=== PATIENT | male | born 1995 | race Hispanic/Latino ===

== ENCOUNTER 2018-01-13 02:24 | Emergency (ER) | payer SELFPAY ==
[2018-01-13] MEDS ORDERED: NA CHLORIDE 0.9% 1,000 ML ONE (02:39)
[2018-01-13] MEDS ORDERED: TETANUS & DIPHTHERIA TOX,ADULT 0.5 ML VIAL ONE (02:40)
[2018-01-13] MEDS ORDERED: CEFAZOLIN/SWI 1gm 1 GM/10 ML SYR ONE (02:40)
[2018-01-13 03:04] LABS: Absolute Lymphocytes (CBC) 2.9 K/uL (0.7-4.9); Absolute Monocytes 0.9 K/uL (0.1-1.3); Eosinophils % 0.5 % (0-4.4); Hematocrit 41.6 % (39.6-49.0); Lymphocytes % 26.1 % (15.3-44.8); MCH 30.8 pg (27.0-35.0); MCV 90.7 fL (80-100); MPV 7.9 fL (7.6-11.3); Monocytes % 8.1 % (3.3-12.3); RBC Red Blood Cell Count 4.59 M/uL (4.33-5.43)
[2018-01-13 03:50] LABS: ALT/SGPT 40 U/L (12-78); AST/SGOT 29 U/L (15-37); Alcohol Serum/Plasma 225 mg/dL (<3); Alkaline Phosphatase 80 U/L (45-117); BUN Blood Urea Nitrogen 11 mg/dL (7-18); Bicarbonate 23 mmol/L (21-32); Bilirubin Direct < 0.1 mg/dL (0-0.2); Bilirubin Total 0.2 mg/dL (0.2-1.0); Glucose Level 154 mg/dL (74-106); Potassium 3.3 mmol/L (3.5-5.1); Protein, Total 8.1 g/dL (6.4-8.2); Sodium Level 137 mmol/L (136-145)
[2018-01-13 04:16] LABS: Barbiturates NEGATIVE (NEGATIVE); Benzodiazepines NEGATIVE (NEGATIVE); Cocaine POSITIVE (NEGATIVE); METHAMPHETAM NEGATIVE (NEGATIVE); Methadone NEGATIVE (NEGATIVE); Opiates NEGATIVE (NEGATIVE); Phencyclidine NEGATIVE (NEGATIVE); THC Cannibis NEGATIVE (NEGATIVE)
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
[2018-01-13] MEDS ORDERED: POTASSIUM CL SA 10 MEQ TAB PO ONE (04:42)
[2018-01-13 04:59] VITALS: TEMP 98.9
[2018-01-13 05:02] VITALS: BP 110/73; O2SAT 97
[2018-01-13 05:54] LABS: Urine Blood TRACE (NEG); Urine Glucose NEGATIVE (NEG); Urine Protein NEGATIVE (NEG); Urine Specific Gravity <1.005 (1.005-1.030); Urine pH 5.5 (5.0-7.0)
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
== END 2018-01-13 04:53 | disposition home or self-care (01) ==
LOC: ER 02:24
DX: S71.102A Unspecified open wound, left thigh, initial encounter (principal); W34.00XA Accidental discharge from unspecified firearms or gun, initial encounter; Y93.9 Activity, unspecified; Y92.9 Unspecified place or not applicable; F19.10 Other psychoactive substance abuse, uncomplicated; Z23 Encounter for immunization
CPT/HCPCS: 36415; 73701; 80048; 80076; 80307; 80320; 81003; 85025; 90714; 96361; 96374; 99284; J0690; J7030; Q9967

== ENCOUNTER 2019-05-11 06:38 | Emergency (ER) | payer SELFPAY ==
[2019-05-11] MEDS ORDERED: TETANUS & DIPHTHERIA TOX,ADULT 0.5 ML VIAL ONE (06:55)
[2019-05-11] MEDS ORDERED: NA CHLORIDE 0.9% 1,000 ML ONE (06:55)
[2019-05-11 07:09] LABS: Absolute Lymphocytes (CBC) 1.6 K/uL (0.7-4.9); Basophils % 0.6 % (0-1.3); Hematocrit 42.5 % (39.6-49.0); Lymphocytes % 14.3 % (15.3-44.8); RBC Red Blood Cell Count 4.89 M/uL (4.33-5.43)
[2019-05-11 07:18] LABS: BUN Blood Urea Nitrogen 11 mg/dL (7-18); Bicarbonate 23 mmol/L (21-32); Glucose Level 116 mg/dL (74-106); Potassium 3.8 mmol/L (3.5-5.1); Sodium Level 140 mmol/L (136-145)
[2019-05-11] MEDS ORDERED: FENTANYL CITR 100 MCG/2 ML ONE (07:52)
[2019-05-11] MEDS ORDERED: DIAZEPAM 10 MG/2 ML INJ SYRINGE ONE (07:53)
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
--- NOTE | 2019-05-11 09:24 | RAD REPORT ---
EXAM DESCRIPTION: RAD - Shoulder 1 View - 05/11/2019 8:57 am FINDINGS: Single-view right shoulder obtained labeled post reduction. Humeral head has been reduced back to normal anatomic position. No fracture component identifiable on this view. AC joint remains normal.
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
[2019-05-11 10:40] VITALS: BP 121/76; TEMP 98; O2SAT 96
== END 2019-05-11 10:21 | disposition home or self-care (01) ==
LOC: ER 06:38
PROC: 0RSJXZZ Reposition Right Shoulder Joint, External Approach (ICD-10-PCS; principal; 2019-05-11)
DX: S43.084A Other dislocation of right shoulder joint, initial encounter (principal); S02.2XXA Fracture of nasal bones, initial encounter for closed fracture; F10.129 Alcohol abuse with intoxication, unspecified; Z23 Encounter for immunization; Z04.71 Encounter for examination and observation following alleged adult physical abuse
CPT/HCPCS: 36415; 70450; 70486; 71260; 72125; 73020; 74177; 76377; 80048; 80320; 85025; 90471; 90714; 96374; 99285; J3010; J3360; J7030; Q9967

== ENCOUNTER 2023-12-30 22:50 | Emergency (ER) | payer SELFPAY ==
--- NOTE | 2023-12-30 23:27 | ER ---
Nurse's Notes [facility] Name: Cr Harvey Age: 28 yrs Sex: Male : 1995 Arrival Date: 12/30/2023 Time: 22:50 Bed 11 Private MD: Diagnosis: Bitten by dog, initial encounter;Puncture wound without foreign body of right middle finger without damage to nail, initial encounter Presentation: 12/29 23:10 Chief complaint: Patient states: bite by stray dog. Coronavirus screen: Client denies vc1 travel out of the [place] in the last 14 days. At this time, the client does not indicate any symptoms associated with coronavirus-19. Ebola Screen: Patient negative for fever greater than or equal to 101.5 degrees Fahrenheit, and additional compatible Ebola Virus Disease symptoms Patient denies exposure to infectious person. Patient denies travel to an Ebola-affected area in the 21 days before illness onset. No symptoms or risks identified at this time. Initial Sepsis Screen: Does the patient meet any 2 criteria? No. Patient's initial sepsis screen is negative. Does the patient have a suspected source of infection? No. Patient's initial sepsis screen is negative. Risk Assessment: Do you want to hurt yourself or someone else? Patient reports no desire to harm self or others. Onset of symptoms was December 30, 2023 at 22:30. Care prior to arrival: None. Activity prior to arrival: None. Mechanism of Injury: dog bite/puncture. Transition of care: patient was not received from another setting of care. 23:10 Method Of Arrival: Ambulatory vc1 23:10 Acuity: BIJAN 4 vc1 Triage Assessment: 23:15 Bite description: bite sustained to palmar aspect of proximal phalanx of right middle vc1 finger by a dog, animal information: vaccination(s) is unknown. General: Appears in no apparent distress. comfortable, Behavior is calm, cooperative, appropriate for age. Pain: Complains of pain in right middle finger Pain currently is 3 out of 10 on a pain scale. Quality of pain is described as sharp. EENT: No deficits noted. No signs and/or symptoms were reported regarding the EENT system. Neuro: Level of Consciousness is awake, alert, obeys commands, Oriented to person, place, time, situation, Appropriate for age. Cardiovascular: Heart tones S1 S2 Capillary refill < 3 seconds Patient's skin is warm and dry. Respiratory: Airway is patent Respiratory effort is even, unlabored, Respiratory pattern is regular, symmetrical. GI: No deficits noted. No signs and/or symptoms were reported involving the gastrointestinal system. : No deficits noted. No signs and/or symptoms were reported regarding the genitourinary system. Derm: Wound noted right middle finger. Derm: Reports pain that is 3 out of 10 on a pain scale. Musculoskeletal: Circulation, motion, and sensation intact. Range of motion: intact in all extremities. Injury Description: Bite sustained to palmar aspect of proximal phalanx of right middle finger caused by a dog, is from animal, puncture. Historical: - Allergies: 23:12 No Known Allergies; vc1 - Home Meds: 23:12 None [Active]; vc1 - PMHx: 23:12 None; vc1 - PSHx: 23:12 None; vc1 - Immunization history:: Client reports having NOT received the Covid vaccine. Last tetanus immunization: > 10 years ago. - Infectious Disease History:: Denies. - Social history:: Smoking status: Patient denies any tobacco usage or history of. Screenin:13 [facility] ED Fall Risk Assessment (Adult) History of falling in the last 3 months, vc1 including since admission No falls in past 3 months (0 pts) Confusion or Disorientation No (0 pts) Intoxicated or Sedated No (0 pts) Impaired Gait No (0 pts) Mobility Assist Device Used No (0 pt) Altered Elimination No (0 pt) Score/Fall Risk Level 0 - 2 = Low Risk Oriented to surroundings, Maintained a safe environment, Educated pt \T\ family on fall prevention, incl call for assistance when getting out of bed. Abuse screen: Denies threats or abuse. Nutritional screening: No deficits noted. Tuberculosis screening: No symptoms or risk factors identified. Assessment: 23:17 General: See triage assessment. Derm: Skin is intact, puncture to right middle finger vc1 palmar side Skin is normal. 23:25 General: Reported dog bite to [facility]. Report # [id number]. vc1 Vital Signs: 23:10 Weight 102.06 kg; Height 5 ft. 5 in. ; Pain 3/10; vc1 23:40 BP 128 / 82; Pulse 96; Resp 18; Temp 97.6; Pulse Ox 98% ; vc1 23:10 Body Mass Index 37.44 (102.06 kg, 165.1 cm) vc1 23:10 Pain Scale: Adult vc1 ED Course: 22:52 Patient arrived in ED. im 22:52 Isabel Wolf PA-C is PHCP. sb4 22:52 Michael Claire MD is Attending Physician. sb4 23:09 Patient has correct armband on for positive identification. Provided Education on: dog vc1 bites. 23:12 Triage completed. vc1 23:13 Arm band placed on left wrist. vc1 23:41 No provider procedures requiring assistance completed. Patient did not have IV access vc1 during this emergency room visit. 23:41 Wound care: to puncture located on palmar aspect of proximal phalanx of right middle vc1 finger was cleaned with Betadine, dressed with Neosporin, 4X4s, Patient tolerated well. Administered Medications: 23:39 Drug: Boostrix Tdap IM 0.5 ml IM once; as a single dose Route: IM; Site: right deltoid; vc1 23:40 Follow up: Response: Medication administered at discharge. vc1 23:40 Drug: Amoxicillin-Clavulanate PO 875 mg PO once Route: PO; vc1 23:40 Follow up: Response: Medication administered at discharge. vc1 Medication: 23:43 VIS not applicable for this client. vc1 Outcome: 23:27 Discharge ordered by . sb4 23:42 Discharged to home ambulatory, with significant other, vc1 23:42 Condition: good 23:42 Discharge instructions given to patient, significant other, Instructed on discharge instructions, follow up and referral plans. medication usage, Demonstrated understanding of instructions, follow-up care, medications, Prescriptions given X 1, 23:44 Patient left the ED. vc1 Signatures: Lian Joyce RN RN vc1 Isabel Wolf PA-C PA-C sb4 Yadira Kramer im
--- NOTE | 2023-12-30 23:27 | EDPHYS ---
Physician Documentation [facility] Name: Cr Harvey Age: 28 yrs Sex: Male : 1995 Arrival Date: 12/30/2023 Time: 22:50 Bed 11 Private MD: ED Physician Michael Claire HPI: 12/29 23:29 This 28 yrs old Male presents to ER via Ambulatory with complaints of Dog Bite sb4 - On finger. 23:29 The patient was bitten on the palmar aspect of proximal phalanx of right middle finger. sb4 Onset: The symptoms/episode began/occurred just prior to arrival. Animal information: Patient/Caregiver unable to provide information related to the animal. The animal is unknown and not captured. Animal control has been notified. Secondary to the bite the patient reports a puncture wound. Associated signs and symptoms: The patient has no apparent associated signs or symptoms. The patient has not experienced similar symptoms in the past. The patient has not recently seen a physician. Historical: - Allergies: 23:12 No Known Allergies; vc1 - Home Meds: 23:12 None [Active]; vc1 - PMHx: 23:12 None; vc1 - PSHx: 23:12 None; vc1 - Immunization history:: Client reports having NOT received the Covid vaccine. Last tetanus immunization: > 10 years ago. - Infectious Disease History:: Denies. - Social history:: Smoking status: Patient denies any tobacco usage or history of. ROS: 23:29 Constitutional: Negative for fever, chills, and weight loss, sb4 23:29 Skin: Positive for puncture, of the palmar aspect of proximal phalanx of right middle finger, 23:29 All other systems are negative, Exam: 23:29 Constitutional: This is a well developed, well nourished patient who is awake, alert, sb4 and in no acute distress. Head/Face: Normocephalic, atraumatic. Eyes: Extra-ocular motions intact. Periorbital areas with no swelling, redness, or edema. ENT: Mucous membranes moist. 23:29 Skin: injury, puncture(s), that are superficial, of the palmar aspect of proximal phalanx of right middle finger, Vital Signs: 23:10 Weight 102.06 kg; Height 5 ft. 5 in. ; Pain 3/10; vc1 23:40 BP 128 / 82; Pulse 96; Resp 18; Temp 97.6; Pulse Ox 98% ; vc1 23:10 Body Mass Index 37.44 (102.06 kg, 165.1 cm) vc1 23:10 Pain Scale: Adult vc1 MDM: 23:01 Patient medically screened. sb4 23:29 Rabies Status: Rabies immunization is not indicated. Data reviewed: vital signs, nurses sb4 notes, and as a result, I will discharge patient. ED course: wound cleaned well by RN. Instructed to patient to call health department tomorrow regarding possible rabies vaccination. will discharge with antibiotics. patient is in agreement with plan. Administered Medications: 23:39 Drug: Boostrix Tdap IM 0.5 ml IM once; as a single dose Route: IM; Site: right deltoid; vc1 23:40 Follow up: Response: Medication administered at discharge. vc1 23:40 Drug: Amoxicillin-Clavulanate PO 875 mg PO once Route: PO; vc1 23:40 Follow up: Response: Medication administered at discharge. vc1 Disposition: 12/30 05:19 Co-signature as Attending Physician, Michael Claire MD I agree with the assessment sp4 and plan of care. I reviewed the patient's care provided by the Advanced Practice Provider and agree with the diagnosis and treatment plan. Disposition Summary: 12/30/23 23:27 Discharge Ordered Notes: Location: Home sb4 Problem: new sb4 Symptoms: have improved sb4 Condition: Stable sb4 Diagnosis - Bitten by dog, initial encounter sb4 - Puncture wound without foreign body of right middle finger without damage to nail, sb4 initial encounter Followup: sb4 - With: Emergency Department - When: As needed - Reason: Worsening of condition Discharge Instructions: - Discharge Summary Sheet sb4 - Animal Bite, Adult, [id number] sb4 - Puncture Wound, [id number] sb4 Forms: - Antibiotic Education sb4 - Patient Portal Instructions sb4 - Leadership Thank You Letter sb4 Prescriptions: - Augmentin 875-125 mg Oral Tablet - take 1 tablet ORAL route every 12 hours for 10 days; 20 tablet; Refills: 0, sb4 Product Selection Permitted Signatures: Lian Joyce RN RN vc1 Brown, Isabel, PA-C PA-C sb4 Potepalov, Michael, MD MD sp4
[2023-12-30] MEDS ORDERED: AMOX/K CLAV 875 MG TAB ONE (23:31)
[2023-12-30] MEDS ORDERED: TDAP (DIPHTH,PERTUSS(ACELL),TET VAC) 0.5 ML VIAL IMVAC ONE (23:31)
[2023-12-31 05:33] VITALS: BP 128/82; TEMP 97.6; O2SAT 98
== END 2023-12-30 23:44 | disposition home or self-care (01) ==
LOC: ER 22:50
DX: S61.232A Puncture wound without foreign body of right middle finger without damage to nail, initial encounter (principal); W54.0XXA Bitten by dog, initial encounter
CPT/HCPCS: 96372; 99284